=== PATIENT | male | born 1975 | race American Indian/Alaskan Native ===

== ENCOUNTER 2022-07-10 21:38 | Emergency (ER) | payer OTHER, MEDICARE ==
[~2022-07-10] VITALS: Ht 172.7 cm; Wt 102.1 kg
--- OUTSIDE RECORDS SUMMARY | 2022-07-10 21:42 | XMS ---
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 EDulce VISIT COUNT (12 MO.) 1 PABLITO Mercedes TOTAL 1 NOTE: Visits indicate total known visits. ED/UCC VISIT TRACKING (12 MO.) 07/10/2022 21:40 PABLITO Ferguson OR TYPE: Emergency COMPLAINT: - COVID+,UNABLE TO WALK AND SOB INPATIENT VISIT TRACKING (12 MO.) No inpatient visits to display in this time frame [email or web address]
[2022-07-10] MEDS ORDERED: OZEMPIC1 MG/0.71 SQ (22:01)
[2022-07-10] MEDS ORDERED: ATORVASTATIN CA10 MG PO (22:02)
[2022-07-10] MEDS ORDERED: MONTELUKAST SOD10 MG PO (22:02)
[2022-07-10] MEDS ORDERED: METFORMIN HCL500 M1 PO (22:02)
[2022-07-10] MEDS ORDERED: MELOXICAM7.5 MG PO (22:02)
[2022-07-10] MEDS ORDERED: BUPROPION XL300 MG PO (22:02)
[2022-07-10] MEDS ORDERED: FREESTYLE LIBR1 EAC4 MC (22:02)
[2022-07-10] MEDS ORDERED: TRAMADOL HCL50 MG PO (22:02)
[2022-07-10] MEDS ORDERED: LISINOPRIL10 MG PO (22:02)
[2022-07-10] MEDS ORDERED: TIZANIDINE HCL4 M1 PO (22:03)
[2022-07-10] MEDS ORDERED: GABAPENTIN300 MG PO (22:03)
[2022-07-10] MEDS ORDERED: FREESTYLE LIBR1 EAC5 MC (22:03)
[2022-07-10] MEDS ORDERED: VENTOLIN HFA18 GM INH (22:03)
[2022-07-10] MEDS ORDERED: PAXLOVID 300-11 EACH PO (23:42)
--- NOTE | 2022-07-11 22:05 | EKG ---
[facility] [address] [facility] [place] [address] Signed Sinus tachycardia Otherwise normal ECG No previous ECGs available Confirmed by Juan M Cash MD () on 07/11/2022 10:05:31 PM Electronically Signed By: JUAN M CASH MD 07/11/222204 PATIENT NAME: SKYLER FLETCHER Electrocardiogram DATE OF : 79 PHYSICIAN: JUAN M CASH MD REPORT #: [id number] REPORT IS CONFIDENTIAL AND NOT TO BE RELEASED WITHOUT AUTHORIZATION
== END 2022-07-10 23:50 | disposition home or self-care (01) ==
LOC: ED 21:38
DX: U07.1 COVID-19 (principal); J45.909 Unspecified asthma, uncomplicated; E11.9 Type 2 diabetes mellitus without complications; I10 Essential (primary) hypertension; Z88.8 Allergy status to other drugs, medicaments and biological substances; Z79.899 Other long term (current) drug therapy; Z79.84 Long term (current) use of oral hypoglycemic drugs
CPT/HCPCS: 36415; 71045; 80053; 83690; 83735; 84484; 85025; 85379; 87502; 93005; 93010; 96361; 96374; 99285-25; A9270; J2405; J7121; U0003

== ENCOUNTER 2022-09-06 07:12 | Emergency (ER) | payer OTHER, MEDICARE ==
[~2022-09-06] VITALS: Ht 172.7 cm; Wt 103.0 kg
[~2022-09-06 07:12] MED LIST: ATORVASTATIN CA10 MG PO; BUPROPION XL300 MG PO; FREESTYLE LIBR1 EAC4 MC; FREESTYLE LIBR1 EAC5 MC; GABAPENTIN300 MG PO; LISINOPRIL10 MG PO; MELOXICAM7.5 MG PO; METFORMIN HCL500 M1 PO; MONTELUKAST SOD10 MG PO; OZEMPIC1 MG/0.71 SQ; PAXLOVID 300-11 EACH PO; TIZANIDINE HCL4 M1 PO; TRAMADOL HCL50 MG PO; VENTOLIN HFA18 GM INH
--- OUTSIDE RECORDS SUMMARY | 2022-09-06 07:16 | XMS ---
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 EDulce VISIT COUNT (12 MO.) 2 PABLITO Mercedes TOTAL 2 NOTE: Visits indicate total known visits. ED/UCC VISIT TRACKING (12 MO.) 09/06/2022 07:14 PABLITO Ferguson OR TYPE: Emergency COMPLAINT: - R SIDE BACK INJURY 07/10/2022 21:40 PABLITO Ferguson OR TYPE: Emergency COMPLAINT: - COVID+,UNABLE TO WALK AND SOB DIAGNOSES: - Shortness of breath - COVID-19 - Other intermediate (current) drug therapy - Unspecified asthma, uncomplicated - Type 2 diabetes mellitus without complications - detention (current) use of oral hypoglycemic drugs - Essential (primary) hypertension - Allergy status to other drugs, medicaments and biological substances INPATIENT VISIT TRACKING (12 MO.) No inpatient visits to display in this time frame [id number]
[2022-09-06] MEDS ORDERED: HYDROCODON-ACE1 EA11 PO (08:42)
[2022-09-06 08:55] VITALS: BP 118/82
== END 2022-09-06 08:55 | disposition home or self-care (01) ==
LOC: ED 07:12
DX: S20.211A Contusion of right front wall of thorax, initial encounter (principal); W22.8XXA Striking against or struck by other objects, initial encounter; J45.909 Unspecified asthma, uncomplicated; E11.9 Type 2 diabetes mellitus without complications; I10 Essential (primary) hypertension; Z88.8 Allergy status to other drugs, medicaments and biological substances; Z79.899 Other long term (current) drug therapy
CPT/HCPCS: 71101; 81003

== ENCOUNTER 2023-12-28 05:55 | Day surgery (SDC) | payer OTHER, MEDICARE ==
[2023-12-26 14:42] VITALS: BP 130/85
[~2023-12-28] VITALS: Ht 175.3 cm; Wt 100.5 kg
[~2023-12-28 05:55] MED LIST changes: +BAYER CHEWABLE81 MG PO; +CYCLOBENZAPRINE10 MG PO; +HYDROCODON-ACE1 EA11 PO; +PAMELOR10 MG PO; +[UNRECOGNIZED DRUG - OTHER] PO
[2023-12-28] MEDS ORDERED: BACKACHE RELIE580 MG PO (06:15)
[2023-12-28 06:32] VITALS: BP 142/71
[2023-12-28] MEDS ORDERED: IBLOOD GLUCOSE TEST STRIP 1 EA TEST VI PRN ×2 (07:00→07:15)
[2023-12-28] MEDS ORDERED: LACTATED RINGER'S 1,000 ML IV SCH (07:00)
[2023-12-28] MEDS ORDERED: LIDOCAINE HCL 1% 5 ML SDV INJ ONE (07:00)
[2023-12-28] MEDS ORDERED: LIDOCAINE HCL 2% 5 ML SDV ONE (07:10)
[2023-12-28] MEDS ORDERED: ondansetron HCL 4 MG/2 ML VIAL IV PRN (07:15)
[2023-12-28] MEDS ORDERED: fentaNYL citrate 50 MCG/ML SDV IV PRN (07:15)
[2023-12-28] MEDS ORDERED: NALOXONE HCL 0.4 MG SYR IV PRN (07:15)
--- NOTE | 2023-12-28 08:22 | NUR ---
12/28/23 0822 BillyRosa M 0858-PT TO PACU IN LL POSITION. EYES CLOSED. RESPONDS TO VERBAL AND TACTILE STIMULI, DOES NOT OPEN EYES OR FOLLOW COMMANDS. BREATHING EASY AND UNLABORED. CPAP IN PLACE. SPO2 >95% ON 10L O2. 0804-PT RESPONDS TO VERBAL AND TACTILE STIMULI. BREATHING EASY AND UNLABORED. CPAP IN PLACE. SPO2 >95%. O2 TITRATED DOWN TO 6 L O2. PT GIVES THUMBS UP. 0811-PT OPENS EYES AND TAKES OFF CPAP MASK. PT STATING HE NEEDS TO GO TO THE BATHROOM. PT REPOSITIONS SELF IN BED AND REQUESTS HEAD TO BE ELEVATED. O2 TITRATED DOWN TO ROOM AIR. PT DENIES PAIN AND NAUSEA. PT ENCOURAGED TO PASS GAS. 0817-PT REQUESTING WATER. REMAINS AWAKE AND ALERT. SPO2 >95% ON ROOM AIR. PT DENIES PAIN AND NAUSEA 0821-PT AMBULATES TO THE BATHROOM. STATES HE FEELS READY TO GO HOME. TOLERATING PO WELL. SPO2 >95% ON ROOM AIR. PT REMAINS AWAKE AND ALERT.
[2023-12-28 08:24] VITALS: BP 119/70
--- NOTE | 2023-12-29 07:27 | OR ---
[facility] [address] [place], [place] [address] Signed DATE OF OPERATION: 12/28/2023 SURGEON: Kwabena Garcia MD PREOPERATIVE DIAGNOSES: 1. Diverticulosis. 2. Laparoscopic cholecystectomy in 2015 at age 39 for diverticular stricture. 3. Chronic constipation. POSTOPERATIVE DIAGNOSES: 1. Minimal left-sided diverticulosis. 2. Minimal to moderate internal hemorrhoids. 3. Colorectal anastomosis at 17 cm (EEA stapled anastomosis). PROCEDURE: Colonoscopy without biopsy. ESTIMATED BLOOD LOSS: None. INDICATIONS: Van is a 48-year-old obese diabetic gentleman, asked to see me for his initial screening colonoscopy. He is now disabled. He talked about his diverticular stricture requiring colonoscopy before and after his laparoscopic colectomy in 2014 at the age of 38. This was done in [place], [place] at the time. He said he still runs constipated. He has a bowel movement about every two or three days. He said he takes a stool softener. No family history of colon cancer or polyps. He was asked to see me by his primary care provider for routine screening purposes. In the office, I gave him a pamphlet on colonoscopy. We reviewed the nature of the test. There is risk including, but not limited to gas bloating, crampy abdominal pain, bleeding, perforation requiring surgery, and missed diagnosis. We also reviewed the written instructions for the bowel prep line by line. Also because of his full face cole, his very poor dentition, sleep apnea requiring CPAP mask, and his daily use of tramadol along with marijuana. He really needed monitored anesthesia care with propofol infusion. In that regard, he did require preoperative blood work. He also understands an adult person has to take him home afterwards. He had expressed understanding and wished to proceed. PROCEDURE IN DETAIL: Van was taken into our endoscopy suite and placed in the left lateral decubitus position. Our nurse racker octave board utilized his CPAP machine. He was given propofol Electronically Signed By: KWABENA GARCIA MD 12/29/23 0727 PATIENT NAME: VAN FLETCHER OPERATIVE REPORT DATE OF : 79 REPORT #: [id number] PHYSICIAN: KWABENA GARCIA MD PCP: BRIE FUNES MD REPORT IS CONFIDENTIAL AND NOT TO BE RELEASED WITHOUT AUTHORIZATION [facility] [address] [place], [place] [address] Signed infusion for sedation. A digital rectal exam was performed and he had good sphincter tone. There were no masses. Not much in the way of external hemorrhoid tissue. The adult colonoscope was introduced and advanced all around into the cecum under direct visualization of camera without difficulty. His prep was actually pretty good. He had a couple of areas of liquid particulate stool matter. Most of that was suctioned out quite readily. He used an entire gallon of polyethylene glycol along with some Dulcolax tablets. We could easily see the appendiceal orifice and ileocecal valve. The scope was then slowly withdrawn. He had just a few diverticula in that left colon above his anastomosis. They are small to moderate size, few in number and scattered about. We could easily see the circled EEA stapled anastomosis at 17 cm from the colon to the rectum. It is quite healthy. There is no stricture. There are no daryl exposed. There is no granulation tissue or ulcerations. The rectum itself was quite unremarkable. After this, the scope was retroflexed. He does have probably minimal to moderate internal hemorrhoids. The gas was then suctioned out. The colonoscope removed. Van tolerated the procedure quite well. RECOMMENDATIONS: Van can return in 10 years for screening purposes. He would be well advised to use a fiber product in place of stool softeners for his chronic constipation. We generally recommend Benefiber. Kwabena Garcia MD ALB/MODL /[id number] cc: Brie Funes MD Copies: ~ Electronically Signed By: KWABENA GARCIA MD 12/29/23 0727 PATIENT NAME: VAN FLETCHER OPERATIVE REPORT DATE OF : 79 REPORT #: [id number] PHYSICIAN: KWABENA GARCIA MD PCP: BRIE FUNES MD REPORT IS CONFIDENTIAL AND NOT TO BE RELEASED WITHOUT AUTHORIZATION
--- NOTE | 2023-12-29 12:55 | EKG ---
[facility] [address] [facility] [place] [address] Signed Sinus bradycardia Otherwise normal ECG When compared with ECG of 10-JUL-2022 22:33, Vent. rate has decreased BY 45 BPM Confirmed by Katlyn uGpta MD ([id number]) on 12/29/2023 12:55:37 PM Electronically Signed By: KATLYN GUPTA 12/29/23 1255 PATIENT NAME: SKYLER FLETCHER Electrocardiogram DATE OF : 79 PHYSICIAN: KATLYN GUPTA REPORT #: [id number] REPORT IS CONFIDENTIAL AND NOT TO BE RELEASED WITHOUT AUTHORIZATION
== END 2023-12-28 08:35 | disposition home or self-care (01) ==
LOC: OPS 05:55 → DS 05:55 → OPS 07:30 → DS 07:30 → OPS 08:35
PROVIDERS: ATTEND Colon & Rectal Surgery
PROC: 0DJD8ZZ Inspection of Lower Intestinal Tract, Via Natural or Artificial Opening Endoscopic (ICD-10-PCS; principal; 2023-12-28 07:30)
DX: K57.30 Diverticulosis of large intestine without perforation or abscess without bleeding (principal); K64.8 Other hemorrhoids; K59.09 Other constipation; Z98.0 Intestinal bypass and anastomosis status; E11.9 Type 2 diabetes mellitus without complications; I10 Essential (primary) hypertension; E66.9 Obesity, unspecified; G47.33 Obstructive sleep apnea (adult) (pediatric); Z68.33 Body mass index [BMI] 33.0-33.9, adult; Z79.84 Long term (current) use of oral hypoglycemic drugs; Z79.899 Other long term (current) drug therapy; Z88.8 Allergy status to other drugs, medicaments and biological substances
CPT/HCPCS: 00811; 93005; 93010; J2001; J7121